=== PATIENT | female | born 1990 | race African-American/Black ===

== ENCOUNTER → 2018-03-20 | Outpatient (CLI) | payer BC ==
--- NOTE | 2018-03-20 18:50 | RADIOLOGY REPORT (SQ) ---
EXAM DESCRIPTION: U/S NON-OB PELVIS W/O DOP COMPLETED DATE/TIME: 03/20/2018 6:39 pm REASON FOR STUDY: PELVIC PAIN IN FEMALE R10.2 PELVIC AND PERINEAL PAIN COMPARISON: None. TECHNIQUE: Dynamic and static grayscale images acquired of the pelvis via transabdominal approach an d recorded on PACS. Additional selected color Doppler and spectral images recorded. LIMITATIONS: None. FINDINGS: UTERUS: Contour normal. No mass. ENDOMETRIAL STRIPE: No focal or generalized thickening. No masses. CERVIX: 4 cm. No nabothian cysts. RIGHT ADNEXUM: No abnormal masses. RIGHT OVARY AND DOPPLER: Normal size. No worrisome masses. Normal arterial vascular flow without gretel dence for torsion. LEFT ADNEXUM: No abnormal masses. LEFT OVARY AND DOPPLER: Normal size. No worrisome masses. Normal arterial vascular flow without evide nce for torsion. FREE FLUID: None noted. OTHER: No other significant finding. MEASUREMENTS: UTERUS: 9.3 x 5.2 cm. ENDOMETRIAL STRIPE: 7 mm. RIGHT OVARY: 4.3 x 2.2 x 2.4 cm. LEFT OVARY: 4 x 2.8 x 2.2 cm. IMPRESSION: NORMAL PELVIC ULTRASOUND BY TRANSABDOMINAL TECHNIQUE. TECHNICAL DOCUMENTATION: JOB ID: [id number] [employer]- All Rights Reserved Reading location - IP/workstation name: [email or web address]
== END ==
LOC: RAD 03-17 18:05
PROVIDERS: ATTEND Physician Assistant
DX: R10.2 Pelvic and perineal pain (principal)
CPT/HCPCS: 76856